=== PATIENT | female | born 1995 | race Caucasian/White ===

== ENCOUNTER 2019-08-10 19:41 | Emergency (ER) | payer OTHER ==
[2019-08-10 20:04] VITALS: BP 112/77
[2019-08-10] MEDS ORDERED: predniSONE TAB* 20 MG PO ONE (20:13)
[2019-08-10] MEDS ORDERED: Famotidine TAB* 20 MG PO ONE (20:14)
--- NOTE | 2019-08-10 21:18 | UC ---
Skin Complaint HPI - HPI Summary HPI Summary: The patient is a 24-year-old female with the onset of hives 1 day prior to arrival. She recently finished a course of antibiotics for UTI. On the day she developed a rash he had eaten some shiitake mushrooms. She denies any chest pain or shortness of breath she denies any nausea or vomiting. The hives wax and wane. They're worse with itching. - History of Current Complaint Chief Complaint: UCAllergicReaction Time Seen by Provider: 08/10/19 20:07 Stated Complaint: SKIN IRRITATION Hx Obtained From: Patient Hx Last Menstrual Period: [id number] Onset/Duration: Sudden Onset, Lasting Days Timing: Constant Onset Severity: Mild Current Severity: None Pain Intensity: 0 Pain Scale Used: 0-10 Numeric Location: Generalized Character: Pruritus - hives Aggravating Factor(s): Nothing Alleviating Factor(s): Nothing Associated Signs & Symptoms: Positive: Rash - Allergy/Home Medications Allergies/Adverse Reactions: Allergies Allergy/AdvReac Type Severity Reaction Status Date / Time No Known Allergies Allergy Verified 08/10/19 20:05 Home Medications: Home Medications Ethynodiol D-Ethinyl Estradiol [Kelnor 1-35 28 Tablet] 1 each PO DAILY 08/10/19 [History Confirmed 08/10/19] PMH/Surg Hx/FS Hx/Imm Hx Previously Healthy: Yes - Surgical History Surgical History: None - Family History Known Family History: Positive: Non-Contributory - Social History Alcohol Use: Weekly Substance Use Type: None Smoking Status (MU): Never Smoked Tobacco Review of Systems All Other Systems Reviewed And Are Negative: Yes Constitutional: Positive: Negative Skin: Positive: Rash Eyes: Positive: Negative ENT: Positive: Negative Respiratory: Positive: Negative Cardiovascular: Positive: Negative Gastrointestinal: Positive: Negative Genitourinary: Positive: Negative Motor: Positive: Negative Neurovascular: Positive: Negative Musculoskeletal: Positive: Negative Neurological: Positive: Negative Psychological: Positive: Negative Physical Exam Triage Information Reviewed: Yes Appearance: Well-Appearing, No Pain Distress, Well-Nourished Vital Signs: Initial Vital Signs Temp 98.9 F 08/10/19 19:57 Pulse 70 08/10/19 19:57 Resp 16 08/10/19 19:57 BP 112/77 08/10/19 19:57 Pulse Ox 100 08/10/19 19:57 Vital Signs Reviewed: Yes Eyes: Positive: Conjunctiva Clear ENT: Positive: Hearing grossly normal, Uvula midline, Other - no stridor. Negative: Nasal congestion, Nasal drainage, Trismus, Muffled voice, Hoarse voice Dental Exam: Normal Neck: Positive: Supple, Nontender Respiratory: Positive: Lungs clear, Normal breath sounds, No respiratory distress Cardiovascular: Positive: RRR, No Murmur Musculoskeletal: Positive: ROM Intact, No Edema Neurological: Positive: Alert Psychological Exam: Normal Skin Exam: Other - urticaria/dermatographia Course/Dx - Diagnoses Provider Diagnosis: Urticaria Discharge ED - Sign-Out/Discharge Documenting (check all that apply): Patient Departure All imaging exams completed and their final reports reviewed: No Studies - Discharge Plan Condition: Stable Disposition: HOME Prescriptions: predniSONE TAB* [Deltasone 20 MG TAB*] 40 mg PO DAILY #8 tab Patient Education Materials: Urticaria (ED) Referrals: Stefan Sinclair MD [Medical Doctor] - If Needed No Primary Care Phys,NOPCP [Primary Care Provider] - Additional Instructions: benadryl 25 mg take two when you get home then 1-2 4x day as needed for itching or rash may cause drowsiness recheck for new or worsening symptoms return if not improved in 3-4 days - Billing Disposition and Condition Condition: STABLE Disposition: Home
== END 2019-08-10 21:30 | disposition home or self-care (01) ==
LOC: UCEAST 19:41
DX: L50.9 Urticaria, unspecified (principal)
CPT/HCPCS: 99202; A9270-GY; G0463; J7512

== ENCOUNTER 2019-08-11 10:05 | Emergency (ER) | payer OTHER ==
--- NOTE | 2019-08-11 10:38 | ED ---
Allergic Reaction/Systemic - HPI Summary HPI Summary: This patient is a 24 year old F presenting to [facility] with a chief complaint of tingling and numbness in bilateral hands, arms, feet, and lower calves since since this morning, 08/11/19, realized when she woke up at 0700. CC described as losing feeling in her hands up to her elbows and in her feet up to her midcalves almost like she was sleeping on her hands and feet for hours. Pt reports she was in UC yesterday, 08/10/19, due to hives that started 08/06/19 and has worsened since. Pt reports she was given prednisone and Benadryl. Pt is concerned that current symptoms are due to allergy medications consumed yesterday in ER. Pt thinks the hives are currently returning. Pt just finished abx for UTI. Pt reports hx of anemia from a long time ago which went away after starting control. Pt reports she can still type on her computer and that her feet symptoms are not as bad as the numbness and tingling in the hands as the symptoms in her feet started an hour ago. - History of Current Complaint Chief Complaint: EDAllergicReaction Time Seen by Provider: 08/11/19 10:19 Hx Obtained From: Patient Hx Last Menstrual Period: [id number] Onset/Duration: Started hours ago, Still Present Timing: Constant Pain Intensity: 0 Pain Scale Used: 0-10 Numeric Aggravating Factor(s): Nothing Alleviating Factor(s): Nothing - Allergies/Home Medications Allergies/Adverse Reactions: Allergies Allergy/AdvReac Type Severity Reaction Status Date / Time No Known Allergies Allergy Verified 08/10/19 20:05 Home Medications: Home Medications diphenhydrAMINE HCl [Benadryl Allergy] 1 - 2 tab PO Q8H PRN 08/11/19 [History Confirmed 08/11/19] PMH/Surg Hx/FS Hx/Imm Hx Endocrine/Hematology History: Reports: Hx Anemia Sensory History: Denies: Hx Legally Blind, Hx Deafness Opthamlomology History: Denies: Hx Legally Blind EENT History: Denies: Hx Deafness - Surgical History Surgery Procedure, Year, and Place: none found Infectious Disease History: No Infectious Disease History: Denies: Traveled Outside the [place] in Last 30 Days - Family History Known Family History: Positive: Non-Contributory - Social History Alcohol Use: Occasionally Hx Substance Use: No Substance Use Type: Reports: None Hx Tobacco Use: No Smoking Status (MU): Never Smoked Tobacco Review of Systems Negative: Fever Positive: Other Positive: Paresthesia, Numbness All Other Systems Reviewed And Are Negative: Yes Physical Exam - Summary Physical Exam Summary: Constitutional: Well-developed, Well-nourished, Alert. (-) Distressed Skin: Warm, Dry HENT: Normocephalic; Atraumatic Eyes: Conjunctiva normal Neck: Musculoskeletal ROM normal neck. (-) JVD, (-) Stridor, (-) Nuchal rigidity Cardio: Rhythm regular, rate normal, Heart sounds normal; Intact distal pulses; Radial pulses are 2+ and symmetric. (-) Murmur Pulmonary/Chest wall: Effort normal. (-) Respiratory distress, (-) Wheezes, (-) Rales Abd: Soft, (-) tenderness, (-) Distension, (-) Guarding, (-) Rebound Musculoskeletal: (-) Edema Lymph: (-) Cervical adenopathy Neuro: Alert, Oriented x3, circumferential paresthesia to the bilateral distal forearm and arm and bilateral lower extremities from midcalf to the toes, 2+ radial and 2+ dp pulses, strength 5/5 in bilateral upper and lower extremities Psych: Mood and affect Normal Triage Information Reviewed: Yes Vital Signs On Initial Exam: Initial Vitals Temp Pulse Resp BP Pulse Ox 97.9 F 105 16 138/90 100 08/11/19 10:05 08/11/19 10:05 08/11/19 10:05 08/11/19 10:05 08/11/19 10:05 Vital Signs Reviewed: Yes Procedures - Sedation Patient Received Moderate/Deep Sedation with Procedure: No Diagnostics - Vital Signs Vital Signs Temp Pulse Resp BP Pulse Ox 08/11/19 10:05 97.9 F 105 16 138/90 100 - Laboratory Lab Statement: Any lab studies that have been ordered have been reviewed, and results considered in the medical decision making process. Re-Evaluation - Re-Evaluation First Eval Re-Evaluation Time: 11:18 Comment: Paresthesia has resolved. Allergic Reaction Course/Dx - Course Course Of Treatment: 24 y/o F with recent allergic reaction p/w paresthesias to arms and legs. -Neuro exam otherwise unremarkable. No difficulty in breathing or signs of respiratory distress. Will obs and reassess. Unclear cause for paresthesias. - Diagnoses Provider Diagnoses: Paresthesia Discharge ED - Sign-Out/Discharge Documenting (check all that apply): Patient Departure - discharge - Discharge Plan Condition: Stable Disposition: HOME Patient Education Materials: Paresthesia (ED) Referrals: [facility] [Outside] - 3 Days Additional Instructions: You were seen in the emergency department for paresthesias. Please follow up with your primary care doctor in next 2-3 days and return to emergency department for trouble breathing, worsening paresthesias or concerning symptoms. It was a pleasure taking care of you today. - Billing Disposition and Condition Condition: STABLE Disposition: Home - Attestation Statements Document Initiated by Scribe: Yes Documenting Scribe: Josefina Ames Provider For Whom Quentin is Documenting (Include Credential): Dr. Taylor Harper MD Scribe Attestation: Josefina Heard, scribed for Dr. Taylor Harper MD on 08/11/19 at 1246. Scribe Documentation Reviewed: Yes Provider Attestation: The documentation as recorded by the Josefina hutchinson accurately reflects the service I personally performed and the decisions made by me, Dr. Taylor Harper MD Status of Scribe Document: Viewed
[2019-08-11 11:44] VITALS: BP 120/55
== END 2019-08-11 11:44 | disposition home or self-care (01) ==
LOC: ED 10:05
DX: R20.2 Paresthesia of skin (principal); Z79.899 Other long term (current) drug therapy
CPT/HCPCS: 99282

== ENCOUNTER 2019-08-16 08:54 | Emergency (ER) | payer OTHER ==
[2019-08-16 10:31] LABS: ABS Eosinophils 0.1 10^3/ul (0-0.6); ABS Lymphocytes 2.1 10^3/ul (1.0-4.8); ABS Monocytes 0.4 10^3/ul (0-0.8); ABS Neutrophils 2.6 10^3/ul (1.5-7.7); Eosinophil % 1.6 %; Hematocrit 38 % (35-47); Hemoglobin 12.5 g/dL (12.0-16.0); Lymphocyte % 40.3 %; Mean Corpuscular HGB Conc 33 g/dL (31-36); Mean Corpuscular Hemoglobin 32 pg (27-31); Mean Corpuscular Volume 96 fL (80-97); Mean Platelet Volume 7.3 fL (7.4-10.4); Nucleated Red Blood Cells % 0.1; Platelet Count 252 10^3/uL (150-450); Red Blood Count 3.92 10^6 /uL (3.70-4.87); Red Cell Distribution Width 14 % (10-15); White Blood Count 5.2 10^3/uL (3.5-10.8)
[2019-08-16 10:50] LABS: ALT 14 U/L (7-52); AST 13 U/L (13-39); Albumin 3.9 g/dL (3.2-5.2); Albumin/Globulin Ratio 1.6 (1-3); Alkaline Phosphatase 34 U/L (34-104); Anion Gap 6 mmol/L (2-11); BUN/Creatinine Ratio 20.8 (8-20); Blood Urea Nitrogen 11 mg/dL (6-24); C Reactive Protein < 1.00 mg/L (<8.01); CO2 Carbon Dioxide 27 mmol/L (22-32); Calcium 9.1 mg/dL (8.6-10.3); Chloride 106 mmol/L (101-111); EGFR African American 171.5 (>60); EGFR Non-African American 141.7 (>60); Globulin 2.5 g/dL (2-4); Glucose 80 mg/dL (70-100); Potassium 3.9 mmol/L (3.5-5.0); Sodium 139 mmol/L (135-145); Total Protein 6.4 g/dL (6.4-8.9)
[2019-08-16] MEDS ORDERED: Ibuprofen TAB* 600 MG PO ONE (11:05)
[2019-08-16 11:46] VITALS: BP 114/64
--- NOTE | 2019-08-16 12:19 | ED ---
HPI Chest Pain - HPI Summary HPI Summary: Patient is a 24-year-old otherwise healthy female presenting to the ED with concern for medication reaction versus cardiac event. Patient states she was placed on Benadryl and prednisone 5 days ago for an allergic reaction of hives. Allergic reaction was to an unknown source. She states after 2 days, she discontinued the prednisone due to feeling of numbness in her left arm. She was seen in the ED for that 3 days ago. Numbness and tingling resolved. She is now c/o chest pain which she describes as itchy and burning to the R collar bone. She states her symptoms from the allergic reaction were throat tightness and SOB as well, but denies this currently. She states she has not had blood work and does have a hx of anemia. - History of Current Complaint Chief Complaint: EDGeneral Time Seen by Provider: 08/16/19 09:09 Hx Obtained From: Patient Hx Last Menstrual Period: [id number] Onset/Duration: Started Hours Ago Timing: Constant Initial Severity: Mild Current Severity: Mild Pain Intensity: 0 Pain Scale Used: 0-10 Numeric Chest Pain Location: Left Anterior Chest Pain Radiates: No Aggravating Factor(s): Nothing Alleviating Factor(s): Nothing Associated Signs and Symptoms: Positive: Negative - Risk Factors Pulmonary Embolism Risk Factors: Negative - Allergy/Home Medications Allergies/Adverse Reactions: Allergies Allergy/AdvReac Type Severity Reaction Status Date / Time meningococcal vaccine A, Allergy Hives Verified 08/16/19 09:17 diphtheria tox conjugate [From Menveo Gregory Component (PF)] PMH/Surg Hx/FS Hx/Imm Hx Previously Healthy: Yes Endocrine/Hematology History: Reports: Hx Anemia Sensory History: Denies: Hx Legally Blind, Hx Deafness Opthamlomology History: Denies: Hx Legally Blind - Surgical History Surgery Procedure, Year, and Place: none found - Immunization History Hx Pertussis Vaccination: No Immunizations Up to Date: Yes Infectious Disease History: No Infectious Disease History: Denies: Traveled Outside the [place] in Last 30 Days - Family History Known Family History: Positive: Non-Contributory - Social History Occupation: Employed Full-time Lives: With Family Alcohol Use: Occasionally Hx Substance Use: No Substance Use Type: Reports: None Hx Tobacco Use: No Smoking Status (MU): Never Smoked Tobacco Review of Systems Negative: Fever, Chills, Fatigue, Skin Diaphoresis Positive: Chest Pain - right sided pain over the clavicle. Negative: Palpitations Negative: Shortness Of Breath, Cough Genitourinary: Negative Positive: no symptoms reported, see HPI Negative: Arthralgia, Myalgia Skin: Negative Neurological: Negative All Other Systems Reviewed And Are Negative: Yes Physical Exam Triage Information Reviewed: Yes Vital Signs On Initial Exam: Initial Vitals Temp Pulse Resp BP Pulse Ox 97.6 F 78 16 118/64 99 08/16/19 08:55 08/16/19 08:55 08/16/19 08:55 08/16/19 08:55 08/16/19 08:55 Vital Signs Reviewed: Yes Appearance: Positive: Well-Appearing, Well-Nourished Skin: Positive: Warm, Skin Color Reflects Adequate Perfusion Head/Face: Positive: Normal Head/Face Inspection Eyes: Positive: EOMI, REY, Conjunctiva Clear Neck: Positive: Supple, No Lymphadenopathy Respiratory/Lung Sounds: Positive: Clear to Auscultation, Breath Sounds Present Cardiovascular: Positive: RRR, Pulses are Symmetrical in both Upper and Lower Extremities Musculoskeletal: Positive: Normal, Strength/ROM Intact Neurological: Positive: Speech Normal Psychiatric: Positive: Affect/Mood Appropriate Procedures - Sedation Patient Received Moderate/Deep Sedation with Procedure: No Diagnostics - Vital Signs Vital Signs Temp Pulse Resp BP Pulse Ox 08/16/19 11:46 97.8 F 70 17 114/64 99 08/16/19 11:19 63 114/64 99 08/16/19 10:50 68 110/64 99 08/16/19 10:39 65 123/68 99 08/16/19 10:19 70 123/68 100 08/16/19 09:49 66 124/70 98 08/16/19 09:19 76 111/53 98 08/16/19 08:55 97.6 F 78 16 118/64 99 - Laboratory Lab Results: Lab Results 08/16/19 08/16/19 Range/Units 10:22 10:22 WBC 5.2 (3.5-10.8) 10^3/uL RBC 3.92 (3.70-4.87) 10^6 /uL Hgb 12.5 (12.0-16.0) g/dL Hct 38 (35-47) % MCV 96 (80-97) fL MCH 32 H (27-31) pg MCHC 33 (31-36) g/dL RDW 14 (10-15) % Plt Count 252 (150-450) 10^3/uL MPV 7.3 L (7.4-10.4) fL Neut % (Auto) 50.2 % Lymph % (Auto) 40.3 % Gallia % (Auto) 7.6 % Eos % (Auto) 1.6 % Baso % (Auto) 0.3 % Absolute Neuts (auto) 2.6 (1.5-7.7) 10^3/ul Absolute Lymphs (auto) 2.1 (1.0-4.8) 10^3/ul Absolute Monos (auto) 0.4 (0-0.8) 10^3/ul Absolute Eos (auto) 0.1 (0-0.6) 10^3/ul Absolute Basos (auto) 0.0 (0-0.2) 10^3/ul Absolute Nucleated RBC 0.0 10^3/ul Nucleated RBC % 0.1 Sodium 139 (135-145) mmol/L Potassium 3.9 (3.5-5.0) mmol/L Chloride 106 (101-111) mmol/L Carbon Dioxide 27 (22-32) mmol/L Anion Gap 6 (2-11) mmol/L BUN 11 (6-24) mg/dL Creatinine 0.53 (0.51-0.95) mg/dL Est GFR ( Amer) 171.5 (>60) Est GFR (Non-Af Amer) 141.7 (>60) BUN/Creatinine Ratio 20.8 H (8-20) Glucose 80 (70-100) mg/dL Calcium 9.1 (8.6-10.3) mg/dL Total Bilirubin 0.40 (0.2-1.0) mg/dL AST 13 (13-39) U/L ALT 14 (7-52) U/L Alkaline Phosphatase 34 (34-104) U/L C-Reactive Protein < 1.00 (<8.01) mg/L Total Protein 6.4 (6.4-8.9) g/dL Albumin 3.9 (3.2-5.2) g/dL Globulin 2.5 (2-4) g/dL Albumin/Globulin Ratio 1.6 (1-3) Result Diagrams: 08/16/19 10:22 08/16/19 10:22 Lab Statement: Any lab studies that have been ordered have been reviewed, and results considered in the medical decision making process. Chest Pain Course/Dx - Course Course Of Treatment: This patient has a history of anemia, labs were obtained due to her feeling of right-sided chest pain. She describes this as a burning sensation as well as a tingling into the right upper chest wall/collarbone is now radiating to the left side. Not worse with palpation or movement. Not better with rest. Labs obtained of all of which were WNL. Troponin 0.00. Perc score = 0. Pt improved with ibuprofen in the ED. Will be dc'd in stable condition with atypical chest pain vs. medication reaction. - Chest Pain Differential Diagnosis/HQI/PQRI: Angina, Chest Wall - Diagnoses Provider Diagnoses: Atypical chest pain Discharge ED - Sign-Out/Discharge Documenting (check all that apply): Patient Departure - Discharge Plan Condition: Stable Disposition: HOME Referrals: [facility] - Bro TELLO [Primary Care Provider] - Additional Instructions: Please follow up with your PCP as needed Ibuprofen or advil for discomfort - Billing Disposition and Condition Condition: STABLE Disposition: Home
== END 2019-08-16 11:50 | disposition home or self-care (01) ==
LOC: ED 08:54
DX: R07.89 Other chest pain (principal); Z88.7 Allergy status to serum and vaccine
CPT/HCPCS: 36415; 80053; 85025; 86140; 93005; 99282; A9270-GY